=== PATIENT | male | born 1970 | race Caucasian/White ===

== ENCOUNTER 2018-10-07 23:55 | Emergency (ER) | payer BC, OTHER ==
[~2018-10-07] VITALS: Ht 177.8 cm; Wt 117.9 kg
[2018-10-08] MEDS ORDERED: PANTOPRAZOLE SODIUM 40 MG VIAL IV ONE (00:15)
[2018-10-08] MEDS ORDERED: ONDANSETRON 4 MG/2 ML VIAL IV ONE (00:15)
[2018-10-08] MEDS ORDERED: IV NORMAL SALINE 1000 ML BAG IV ONE (00:15)
[2018-10-08] MEDS ORDERED: MORPHINE SULFATE 2 MG/1 ML DISP.SYRIN IV ONE (00:15)
[2018-10-08] MEDS ORDERED: MORPHINE SULFATE 4 MG/1 ML DISP.SYRIN ONE (00:19)
[2018-10-08] MEDS ORDERED: PANTOPRAZOLE SODIUM 40 MG VIAL ONE (00:20)
[2018-10-08] MEDS ORDERED: ONDANSETRON 4 MG/2 ML VIAL ONE (00:20)
[2018-10-08] MEDS ORDERED: METOCLOPRAMIDE HCL 10 MG/2 ML VIAL ONE (00:27)
[2018-10-08] MEDS ORDERED: diphenhydrAMINE 50 MG/1 ML VIAL ONE (00:27)
[2018-10-08] MEDS ORDERED: METOCLOPRAMIDE HCL 10 MG/2 ML VIAL IV ONE (00:30)
[2018-10-08] MEDS ORDERED: diphenhydrAMINE 50 MG/1 ML VIAL IV ONE (00:30)
[2018-10-08 00:35] LABS: BASOPHILS # (AUTO) 0.1 K/uL (0.0-8.0); BASOPHILS % (AUTO) 0.8 % (0.0-2.0); EOSINOPHILS # (AUTO) 0.1 K/uL (0.0-0.7); EOSINOPHILS % (AUTO) 0.9 % (0.0-7.0); HEMATOCRIT 48.2 % (36.7-47.1); HEMOGLOBIN 16.5 g/dL (12.5-16.3); LYMPHOCYTES # (AUTO) 2.5 K/uL (20.0-40.0); LYMPHOCYTES % (AUTO) 21.6 % (20.5-51.5); MEAN CORPUSCULAR HEMOGLOBIN 29.6 uug (23.8-33.4); MEAN CORPUSCULAR HGB CONC 34 g/dL (32.5-36.3); MEAN CORPUSCULAR VOLUME 86.6 fL (73.0-96.2); MONOCYTES # (AUTO) 0.8 K/uL (2.0-10.0); MONOCYTES % (AUTO) 6.9 % (0.0-11.0); NEUTROPHILS # (AUTO) 8.1 K/uL (1.8-8.9); NEUTROPHILS % (AUTO) 69.8 % (38.5-71.5); PLATELET COUNT (AUTO) 270 K/uL (152-348); RED BLOOD CELL COUNT(AUTO) 5.56 MIL/uL (4.06-5.63); WHITE BLOOD COUNT (AUTO) 11.5 K/uL (3.6-10.2)
[2018-10-08] MEDS ORDERED: HYDROMORPHONE 1 MG/1 ML DISP.SYRIN ONE (00:37)
[2018-10-08] MEDS ORDERED: HYDROMORPHONE 1 MG/1 ML DISP.SYRIN IV ONE (00:45)
[2018-10-08 01:35] LABS: BILIRUBIN,DIRECT 0.2 mg/dL (0.0-0.2); BILIRUBIN,TOTAL 0.7 mg/dL (0.2-1.0); CREATININE 0.9 mg/dL (0.6-1.3); POTASSIUM 3.6 mmol/L (3.5-5.1); TOTAL PROTEIN, SERUM 8.3 g/dL (6.4-8.2)
--- NOTE | 2018-10-08 01:35 | NUR ---
Pt states pain has subsided, feels less nauseous. Pt resting in bed, appears in no apparent distress at this time.
[2018-10-08] MEDS ORDERED: MAG HYDROX/AL HYDROX/SIMETH 30 ML LIQUID UDC ONE (01:40)
[2018-10-08] MEDS ORDERED: LIDOCAINE VISCUS 2% 15 ML UDC ONE (01:40)
[2018-10-08] MEDS ORDERED: LIDOCAINE VISCUS 2% 15 ML UDC MM ONE (01:45)
[2018-10-08] MEDS ORDERED: MAG HYDROX/AL HYDROX/SIMETH 30 ML LIQUID UDC PO ONE (01:45)
--- NOTE | 2018-10-08 02:34 | NUR ---
Pt is sleeping comfortably in bed. No acute distress noted.
--- NOTE | 2018-10-08 02:51 | NUR ---
IV removed. Catheter intact and site benign. Pressure and 4x4 gauze applied to site. No bleeding noted.
--- NOTE | 2018-10-08 02:52 | NUR ---
Patient discharged to home in stable conditon. Written and verbal after care instructions given. Patient verbalizes understanding of instructions. Pt left ER in stable gait, states will be taking [employer] home. No acute distress noted. All belongings w pt.
[2018-10-08 02:56] VITALS: BP 142/68
== END 2018-10-08 02:56 | disposition home or self-care (01) ==
LOC: ER 23:55
DX: K29.70 Gastritis, unspecified, without bleeding (principal); I10 Essential (primary) hypertension
CPT/HCPCS: 36415; 71045; 80048; 80076; 83690; 84484; 85025; 93005; 96361; 96374; 96375; 99284; C9113; J1170; J1200; J2270; J2405; J2765; 70030-TC; A4663; J7030